=== PATIENT | female | born 1965 | race Caucasian/White ===

== ENCOUNTER 2020-12-12 13:25 | Day surgery (SDC) | payer OTHER ==
[2020-12-10 12:04] VITALS: BMI 56.6
[2020-12-12 16:36] VITALS: BP 130/74; PULSE 72; TEMP 97.8
== END 2020-12-12 15:05 | disposition home or self-care (01) ==
LOC: FASU-ENDO 13:25
PROVIDERS: ATTEND Internal Medicine Gastroenterology
PROC: 0DJD8ZZ Inspection of Lower Intestinal Tract, Via Natural or Artificial Opening Endoscopic (ICD-10-PCS; principal; 2020-12-12 14:07)
DX: Z12.11 Encounter for screening for malignant neoplasm of colon (principal)

== ENCOUNTER 2021-06-02 09:06 | Day surgery (SDC) | payer OTHER ==
[2021-06-01 16:12] VITALS: BMI 56.6
[2021-06-02 10:59] VITALS: PULSE 76; TEMP 98.6
[2021-06-02 11:01] VITALS: BP 102/65
== END 2021-06-02 11:01 | disposition home or self-care (01) ==
LOC: FASU-ENDO 09:06
PROVIDERS: ATTEND Internal Medicine Gastroenterology
PROC: 0DJD8ZZ Inspection of Lower Intestinal Tract, Via Natural or Artificial Opening Endoscopic (ICD-10-PCS; principal; 2021-06-02 10:20)
DX: Z12.11 Encounter for screening for malignant neoplasm of colon (principal); K64.1 Second degree hemorrhoids

== ENCOUNTER 2021-08-25 08:27 | Day surgery (SDC) | payer OTHER ==
[2021-08-21 17:42] VITALS: BMI 56.6
[2021-08-25] MEDS ORDERED: PROPOFOL 20 ML ONE ×4 (08:46)
[2021-08-25] MEDS ORDERED: LIDOCAINE HCL/PF 2% SDV 5ML VIAL ONE (08:46)
[2021-08-25 10:56] VITALS: TEMP 97.8
[2021-08-25 12:28] VITALS: BP 110/77; PULSE 69
== END 2021-08-25 12:20 | disposition home or self-care (01) ==
LOC: FASU-ENDO 08:27
PROVIDERS: ATTEND Internal Medicine Gastroenterology
PROC: 0DB68ZX Excision of Stomach, Via Natural or Artificial Opening Endoscopic, Diagnostic (ICD-10-PCS; 2021-08-25)
PROC: 0DB48ZX Excision of Esophagogastric Junction, Via Natural or Artificial Opening Endoscopic, Diagnostic (ICD-10-PCS; 2021-08-25)
PROC: 0DB98ZX Excision of Duodenum, Via Natural or Artificial Opening Endoscopic, Diagnostic (ICD-10-PCS; principal; 2021-08-25 11:23)
DX: D64.9 Anemia, unspecified (principal); K29.50 Unspecified chronic gastritis without bleeding; K20.90 Esophagitis, unspecified without bleeding
CPT/HCPCS: 88305-TC; 88342-TC; C9803; U0003; U0005

== ENCOUNTER 2021-10-27 07:01 | Day surgery (SDC) | payer OTHER ==
[2021-10-22 16:24] VITALS: BMI 56.6
[2021-10-27] MEDS ORDERED: LIDOCAINE HCL/PF 2% SDV 5ML VIAL ONE (07:57)
[2021-10-27] MEDS ORDERED: PROPOFOL 20 ML ONE ×4 (07:57)
[2021-10-27 09:36] VITALS: TEMP 97.7
[2021-10-27 09:48] VITALS: BP 127/75; PULSE 71
== END 2021-10-27 09:55 | disposition home or self-care (01) ==
LOC: FASU-ENDO 07:01
PROVIDERS: ATTEND Internal Medicine Gastroenterology
PROC: 0DB68ZX Excision of Stomach, Via Natural or Artificial Opening Endoscopic, Diagnostic (ICD-10-PCS; principal; 2021-10-27 09:13)
DX: Z13.810 Encounter for screening for upper gastrointestinal disorder (principal); K25.9 Gastric ulcer, unspecified as acute or chronic, without hemorrhage or perforation; K29.50 Unspecified chronic gastritis without bleeding
CPT/HCPCS: 88305-TC; 88342-TC